=== PATIENT | female | born 1940 | race Caucasian/White ===

== ENCOUNTER → 2021-07-08 08:36 | Outpatient (CLI) | payer MEDICARE, OTHER, SELFPAY ==
[2021-07-08 11:33] LABS: COVID19 -Nasal RAPID Negative (Negative)
== END ==
PROVIDERS: PCP Family Medicine; Visit Provider Physician Assistant
DX: Z20.822 Contact with and (suspected) exposure to COVID-19 (principal)
CPT/HCPCS: 87635; C9803

== ENCOUNTER 2021-07-10 09:15 | Observation (INO) | payer MEDICARE, OTHER, SELFPAY ==
[2021-07-03 12:37] VITALS: BMI 37.9
[2021-07-09] VITALS (18 sets, daily range): BP systolic 115–187; BP diastolic 43–84; PULSE 61–95; RESP 12–22; TEMP 36.3–36.8; O2SAT 92–100; BMI 37.9
--- NOTE | 2021-07-09 06:15 | DI.RAD.S_ITS ---
PROCEDURE: XR KNEE LT 1TO2V INDICATIONS: postop prosthesis placement TECHNIQUE: 2 view(s) of the knee acquired. COMPARISON: [facility] [place], CR, XR KNEE ARTHRITIC SERIES BI, 03/13/2021, 13:59. FINDINGS: Bones: Patient is status post knee joint arthroplasty. Hardware components are in expected positions. Visualized bony structures are intact. Soft tissues: Overlying postoperative changes are noted. IMPRESSION: Expected immediate postoperative appearance of left TKA. Dictated by: Ander Chao [facility] Interpreted: Robert Almanza MD on 07/09/2021 at 11:42 Transcribed by: ROYAL on 07/09/2021 at 11:42 Approved by: Robert Almanza M.D. on 07/09/2021 at 12:09
[2021-07-09] MEDS: ACETAMINOPHEN 325 MG TABLET 975 MG PO (07:00)
[2021-07-09] MEDS: LACTATED RINGERS 1,000 ML 42 ML IV ×2 (07:00→09:46)
[2021-07-09] MEDS: PREGABALIN 75 MG CAPSULE PO (07:00)
[2021-07-09] MEDS: CELECOXIB 200 MG CAPSULE PO (07:01)
[2021-07-09] MEDS: VANCOMYCIN 1,000 MG/200 ML PIGGYBACK 200 MG IV (07:01)
--- NOTE | 2021-07-09 07:53 | PM.PREOP ---
Pre-operative Note COVID-19 COVID-19 status: Negative Interval Note History & Physical reviewed/Exam performed by Physician: Yes Changes to H&P: No
--- NOTE | 2021-07-09 08:07 | PM.OP.1 ---
Operative Date/Time/Diagnoses Date of procedure: 07/09/21 Time of procedure: 08:10 Pre-op diagnosis: left knee OA Post-op diagnosis: same Procedure & Clinicians Procedure: left knee OA Same procedure as scheduled: Yes Indications: The patient has had progressively worsening left knee pain with radiographic changes consistent with arthritis. Non-operative management has failed and the patient has requested total knee replacement. The risks, benefits and alternatives to surgery were discussed with the patient prior to proceeding. Risks discussed included, but were not limited to, failure to relieve pain, stiffness, infection, nerve damage, deep venous thrombosis, pulmonary embolism, stroke, coma, heart attack, permanent paralysis and , as well as the potential need for eventual revision of the prosthetic. Surgeon: Gwen Burns Quality Assurance Inspector: Brandie Canales Anesthesia Type: General and Spinal Operative Notes Findings: Severe left knee osteoarthritis Closure Type: primary Specimen(s): none sent Prosthetic devices, grafts, tissues, transplants, or devices: Size 5 left femur, size 3 tibia, +10 poly, 7.5 by 35 mm patella round Applied: drain(s) Estimated Blood Loss (mL): 250 Blood products transfused: none Tourniquet time (min): 92 Procedure in detail: The patient was seen in the pre-operative area, where the patient identified the left knee as the operative site and this was marked with my initials. The patient received pre-operative antibiotics, and was taken to the operating room and placed on the operative table in the supine position. After satisfactory anesthesia, a materials assistant out was performed. The left leg was encircled with a tourniquet about the proximal thigh, and the leg was prepared from the toes to the tourniquet with ChloroPrep in the usual fashion and draped through sterile drapes. The leg was elevated and exsanguinated with Eschmark bandage and the tourniquet inflated to [250] mmHg pressure. The knee was approached through an approximately 18 cm incision centered over the patella and carried into the knee through a medial parapatellar arthrotomy. A portion of the medial and lateral meniscus was resected. Soft tissue was carefully mobilized around the patella the patella was measured with a caliper. Bone was resected from the patella and the patellar height was reconstituted with up an appropriate sized patellar component. A cover was then placed on the patella. A small amount of additional medial and lateral meniscus was resected. The distal femur was cut at 5?. A [+2] cut was used. It looked like an appropriate distal femoral cut and the cut was made without difficulty. An extramedullary guide was used for the tibial cut. 10 mm was resected off the least affected side. She had a very tight varus knee and throughout the procedure meticulous attention was directed at getting adequate gap balancing. I resected all of the bony osteophytes from the medial aspect of the tibia and the femur stripped portion of the MCL at joint line and specifically checked and released the posterior medial capsule and then used a spinal needle with the multiple puncture technique to loosen the medial collateral ligament. The tibia was prepared. The rotation was assessed. The patient was placed in extension residual medial and lateral meniscus as well as any residual bone was carefully resected. [No] additional tibia was resected. Hemostasis was achieved especially posteriorly. Additional local was injected into the posterior capsule. The extension gap was assessed and additional releases for gap balancing were performed as necessary. It was checked with the gap marketing and promotions manager. The femoral component was trial was placed and the notch was finished The rotation was assessed and the appropriate size femoral guide was placed on the distal femur and finishing cuts were made. There was no evidence of notching. The anterior, posterior and chamfer cuts were then made. The posterior osteophytes and soft tissues were then removed. The posterior capsule was injected with part of a mixture of 60 ml 0.25% Marcaine mixed with 20 ml Exparel for post operative pain control. The remainder of this mixture was injected into the capsule and subcutaneous tissues during cement curing.l tibial and femoral components were then placed and the knee placed through a range of motion. Range of motion was [0-120], with good stability throughout the range. The trials were then removed, and the tibia was finished. The bone was prepared with pulsatile lavage, and dried with a sponge. Cement was applied and the final prosthetics placed. Excess cement was removed during and after cement curing. A brief Betadine soak was performed. After confirming there was no extruded cement posteriorly, the final tibial insert was placed. The knee was copiously irrigated and the tourniquet deflated. Hemostasis was obtained with the Bovie cautery. A drain was placed and brought out superolaterally. The capsule was closed with interrupted nonabsorbable suture. The subcutaneous layer was closed with barbed sutures, and the skin with a running 3-0 V-Lock suture and Surgical glue. An Aquacel Ag dressing was applied and the patient was taken to recovery having tolerated the procedure well. Complications: none Post-operative Condition: stable Disposition: Acute Care Plan for aftercare: The patient will be maintained on a standard total knee replacement protocol with weight bearing as tolerated. The patient will receive aspirin and sequential compression devices for DVT prophylaxis. The patient will be discharged home when safe for the home environment.
[2021-07-09] MEDS: CEFAZOLIN 2 GM/20 ML SYRINGE IV ×2 (08:14→16:21)
[2021-07-09] MEDS: TRANEXAMIC ACID 1,000 MG VIAL 1000 MG INJ (08:25)
--- NOTE | 2021-07-09 08:48 | SUR.OPER ---
Supine on padded OR bed. Pillow under head, arms secured on padded armboards <90 degree abduction. Safety belt across torso. Non-operative leg secured with tape over blanket over lower leg. Operative leg secured in DeMayo/August/Nathe positioner. Foam padded brace at thigh of operative leg.
[2021-07-09] MEDS: BUPIVACAINE 0.25% (PF) 60 ML, EPINEPHrine 0.3 MG INJ (08:52)
[2021-07-09] MEDS: BUPIVACAINE LIPOSOME 266 MG/20 ML VIAL INJ (08:52)
--- NOTE | 2021-07-09 11:47 | SUR.PHASEI ---
Patient transferred to room 218 in bed by this RN. SBAR report update at bedside. Pt awake, alert, denies pain. Starting to wiggle toes. Tolerating ice chips. Call light in reach. Dressing remains C/D/I and hemovac clamped.
[2021-07-09] MEDS: LACTATED RINGERS 1,000 ML 100 ML IV ×2 (12:30→22:29)
[2021-07-09] MEDS: IBUPROFEN 400 MG TABLET PO ×3 (13:20→21:16)
--- NOTE | 2021-07-09 13:40 | DIET.PN1 ---
Dietary Progress Note Assessment: 80y F admitted for total knee referred to nutrition for low MNA. Pt reports depression because of of spouse this year. Pt diabetic c POC BG 199 after surgery, will change diet to Consistent Carb to support good BG control for wound healing (wound vac) BG goal <180. Pt not at risk for malnutrition, consumed 100% lunch today with BMI 37.4. Ht: 167.64 cm Wt: 105 kg BMI: 37.9 UBW: Last BM: 07/08/21 (07/09/21 12:05) MNA: 10 Flavio Score: 16 Diet: 07/09/21 Lunch General (Regular) Diet Diet Modifications: Nutrition Percent Meal Consumed 100% 07/09/21 13:22 Electronically Signed by: Becca Downing 07/09/21 13:40 Clinical Dietitian [address] [address]
[2021-07-09] MEDS: ACETAMINOPHEN 325 MG TABLET 650 MG PO ×2 (14:43→21:15)
--- NOTE | 2021-07-09 14:43 | PT.IIE ---
Current Diagnoses Unilateral primary osteoarthritis, left knee (07/09/21) Surgery Performed Operation Date: 07/09/21 07:45 Actual Procedures p Total Knee Arthroplasty(Left) - Gwen Burns MD Medical History (Last Updated 07/03/21 @ 13:12 by Soraya Ferreira RN) Anxiety Aortic stenosis Asthma Breast cancer, left Chronic sinusitis Diabetes (2002) Diabetic neuropathy GERD (gastroesophageal reflux disease) Gout HLD (hyperlipidemia) HTN (hypertension) Osteoarthritis Retrosternal goiter Physical Therapy Inpatient Evaluation/Re-Eval M1 PT/OT-IP Prior Functional Status Start: 07/09/21 14:02 Freq: NEEDED Status: Active Protocol: Document 07/09/21 14:43 AW (Rec: 07/09/21 15:15 AW [id number]) Medical Review Prior Functional Status Medical History Reviewed Yes Communication No known deficits. Pt is able to make her needs known. Mobility and Gait Pt is modified independent with use of SBQC around her house and to the car. Her knee pain has been so debilitating that she has not been to the store in three years. She has been attending outpatient PT for her knee pain. Activities of Daily Living and IADL's Pt reports independence with ADL's. She does not drive but rather depends on her friend to drive to appointments. Her daughter and [id number] run errands and shopping trips for her. Prior Functional Level (Other details) PMH includes DM2, BRCA s/p L mastectomy, neuropathy affecting bilateral legs and right hand. Social History Household Members none Living Arrangements House Number of Floors (Floors) One Floor Number of Stairs To Enter/Railing? 4 steps up to deck with wide bilateral rails Home Environment High Toilet,Tub/Shower Home Equipment Front Wheel Walker,Quad Cane Employment Status Retired Additional Social History Comment Pt lives alone in [facility]. Her [id number], Kaykay, will stay with the patient at least one week at discharge. M2 PT-IP Current Condition Start: 07/09/21 14:02 Freq: NEEDED Status: Active Protocol: Document 07/09/21 14:43 AW (Rec: 07/09/21 15:15 AW [id number]) Physical Therapy Current Condition Current Condition Evaluation Date 07/09/21 Treatment Diagnosis L TKA; BLE neuropathy; difficulty in walking Onset Date 07/09/21 M3 PT-IP Subjective Start: 07/09/21 14:02 Freq: NEEDED Status: Active Protocol: Document 07/09/21 14:43 AW (Rec: 07/09/21 15:15 AW [id number]) Subjective Physical Therapy Visit Type Type Initial Evaluation Visit Start Time 14:05 Visit Stop Time 14:43 Total Visit Minutes 38 Number of TIRE MECHANIC Visits 0 Physical Therapy Visit Comments Patient Comments Pt would like to use the commode Patient Goals Pt plans to return home with family support. Therapy Pain Assessment Pain When Pain Assessed During Mobility Pain Present Pain Present Pain Reported Location left knee Intensity 3 Scale Used Numeric (0 - 10) Pain Management Techniques Apply Cold,Elevation,Timing of Activity with Medications M4 PT-IP Mobility and Gait Start: 07/09/21 14:02 Freq: NEEDED Status: Active Protocol: Document 07/09/21 14:43 AW (Rec: 07/09/21 15:15 AW [id number]) PT-Bed Mobility Assessment Supine to Sit Supine to Sit Minimal Assistance,1 Person Assistance,Head of Bed Elevated,Bedrails Sit to Supine Sit to Supine Minimal Assistance,1 Person Assistance Scooting Scooting to Edge of Bed Standby Assistance PT-Transfer Assessment Sit to and From Stand Sit to and from Stand Moderate Assistance,1 Person Assistance,Use of Upper Extremities Equipment Transfer Assistive Device Gait Belt,Front Wheeled Walker Orthotic/Prosthetic Devices or Brace: No Transfers Transfer Destination Bed,Bedside Commode Transfer Technique Stand Step Pivot Transfer Ability Level of Assist Minimal Assistance,Moderate Assistance,1 Person Assistance Comments Mobility Comments Pt was lying in bed as PT arrived. BP was 148/56 HR 94 SpO2 99% RA. Bed was locked in 30 degrees elevation and pt felt she needed to get to the commode urgently. She needed min assist to guard and guide her operative leg to dangling position on the right side of the bed. She then stood mod A x 1 and used FWW to turn 90 degrees to her left, transferring to [facility] mod A x 1. She voided and completed pericare without assist. She stood from the [facility] with heavy use of UE on commode arms mod A x 1 and transferred back to bed with min assist using FWW. With min assist to lift her operative leg, she returned to supine. BP after activity was 149/49 HR 96 SpO2 99% RA. Pt was left with call light and tray table in reach, SCD's reapplied, and ice pack on left knee. Gait Assessment Comments Gait Comments Steps taken during transfers only. See mobility comments for details. PT-Balance Assessment Sitting Balance and Reactions Static Sitting Balance Ability Good Dynamic Sitting Balance Ability Good Standing Balance and Reactions Static Standing Balance Ability Fair Dynamic Standing Balance Ability Fair Device Used FWW M5 PT-IP Objective Assessments Start: 07/09/21 14:02 Freq: NEEDED Status: Active Protocol: Document 07/09/21 14:43 AW (Rec: 07/09/21 15:15 AW [id number]) Orientation Orientation/Cognition Level of Alertness Alert Orientation Name,Day of Week,Place, Situation Language Function Ability No Deficits Noted Safety Awareness Understands Safety Issues Memory Description No Deficits Noted Gross Range of Motion Lower Extremity ROM Assessment Left Impaired Strength Lower Extremity Strength Assessment Bilaterally Impaired Hip R 4/5; L 4-/5 Knee R 4+/5 Ankle B 4/5 Sensation Assessment Sensation Gross Sensation Right UE Impaired,Right LE Impaired,Left LE Impaired Light Touch Impaired Proprioception (Position) Impaired Comments Sensation Comments 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 She reports her PT will take her shoes off and she has no idea if she is not looking. Similarly, pt does not feel pressure of SCD's on her legs at this encounter. Sensation slightly more intact proximally. M6 PT-IP Treatment Start: 07/09/21 14:02 Freq: NEEDED Status: Active Protocol: Document 07/09/21 14:43 AW (Rec: 07/09/21 15:15 AW [id number]) Physical Therapy Treatment Exercises Exercises Ankle Pumps,Quad Sets,Heel Slides Education Education Provided Weight Bearing Status,Post-Op Packet,Safety Other Treatments Other Treatment Performed Educated pt on PT plan of care , weightbearing status, safe use of FWW. M7 PT-IP Assessment and Plan Start: 07/09/21 14:02 Freq: NEEDED Status: Active Protocol: Document 07/09/21 14:43 AW (Rec: 07/09/21 15:15 AW [id number]) PT Summary Assessment and Plan Potential Rehabilitation Potential Good Status of Condition at Evaluation Evolving Summary Impairments Pain,ROM,Strength,Balance,Bed Mobility,Transfers,Gait Assessment Summary Jessica is an 80 yo woman with diabetes and severe neuropathy who was seen for PT evaluation on POD0 following L TKA. She is modified independent at baseline for household mobility with a quad cane. Community mobility is severely limited and pt leaves her house for appointments only. She lives alone but will have her [id number] to stay with her when she discharges. Pt required min to mod assist for bed mobility and transfers on initial assessment. She did not progress to gait due to fatigue. PT will continue to assess for safe discharge plan but currently recommending home with 24/7 assist available. Pt will likely require home health PT to progress her ROM, strength, and gait. Will need to set up caregiver training at next session. Goals Bed Mobility Goal Independent Transfer Goal Standby Assistance,Front Wheeled Walker Gait Goal Contact Guard Assistance,Front Wheel Walker Gait Distance 75 Other Goals - up/down 4 steps with unilateral rail CGA Days to Meet Goals 5 Frequency of Treatment Frequency Of Treatment Twice a Day Treatment Plan Physical Therapy Treatment Plan Bed Mobility Training,Transfer Training,Gait Training, Therapeutic Exercise,Balance Retraining,Post Op Education, Discharge Planning,Hot or Cold Pack Other Recommendations and Next Treatment transfers, gait training with Focus FWW, ther ex, coordinate CGT for PM session Weight Bearing Status Weight Bearing Status Weight Bear as Tolerated Recommendations To Nursing Amount of Assist Needed 1 Person Assist Discharge Recommendations PT Discharge Recommendations Home with 24/7 Assist Available,Home Health Transportation Needs at Discharge Private Vehicle
[2021-07-09] MEDS: glyBURIDE 2.5 MG TABLET PO (16:38)
[2021-07-09] MEDS: allopurinoL 100 MG TABLET PO (21:16)
[2021-07-09] MEDS: DOCUSATE 100 MG CAPSULE PO (21:16)
[2021-07-09] MEDS: ASPIRIN EC 81 MG TABLET PO (21:16)
[2021-07-09] MEDS: SODIUM CHLORIDE 0.9% FLUSH 10 ML IV (21:21)
[2021-07-10] VITALS: BP 137/41; PULSE 73; RESP 20; TEMP 36.7; O2SAT 95
[2021-07-10] MEDS: IBUPROFEN 400 MG TABLET PO ×6 (01:35→19:55)
[2021-07-10] MEDS: CEFAZOLIN 2 GM/20 ML SYRINGE IV (01:36)
[2021-07-10 03:53] VITALS: BP 104/49; PULSE 66; RESP 18; TEMP 36.7; O2SAT 97
[2021-07-10] MEDS: LEVOTHYROXINE 50 MCG TABLET PO (05:38)
[2021-07-10 05:48] LABS: Hematocrit 32.9 % (36-46); Hemoglobin 10.9 g/dL (12.0-16.0)
--- NOTE | 2021-07-10 06:22 | PM.PNPO.1 ---
Subjective Subjective Date Patient Seen: 07/10/21 Time Patient Seen: 06:22 Interval history: Patient is complaining of mild left knee pain this morning. She has a history of peripheral neuropathy due to diabetes and does not have typical pain. She is using Tylenol and ibuprofen, she refuses narcotic pain medications. She is planning on discharging home but is concerned because she has 4 steps it was rather deconditioned prior to surgery. Exam Vital Signs (past 8 hours): - 07/10/21 00:00 07/10/21 03:53 Temperature 98.0 F 98.0 F Pulse Rate 73 66 Respiratory Rate 20 18 Blood Pressure 137/41 L 104/49 L Pulse Oximetry 95 97 Oxygen Delivery Method Room Air Oxygen Flow Rate 0 Narrative Exam Narrative: Left pleasant he year old female, resting comfortably in bed, no acute distress. Dressing is clean, dry, intact. Bilateral lower extremity: Normal motor function is grossly intact, sensation is decreased bilaterally. Calves are soft and nontender to palpation. The Hemovac drain was removed today. Objective Labs Result Diagrams: 07/10/21 05:23 Labs: Laboratory Results - last 24 hr 07/10/21 05:23 Hgb 10.9 L Hct 32.9 L PFSH Medical History Anxiety Aortic stenosis Asthma Breast cancer, left Chronic sinusitis Diabetes (2002) Diabetic neuropathy GERD (gastroesophageal reflux disease) Gout HLD (hyperlipidemia) HTN (hypertension) Osteoarthritis Retrosternal goiter Surgical History Hx of bilateral cataract extraction Hx of left mastectomy (01/28/19) Hx of thyroidectomy (2004) Hx of tonsillectomy Hx of vaginal hysterectomy Social History household members: none Smoking Status: Never smoker alcohol intake: never Assessment & Plan Post-op Postoperative Procedures: Procedures Operation Date: 07/09/21 07:45 Actual Procedure Side Surgeon p Total Knee Arthroplasty Left Gwen Burns MD Postoperative day: 1 Postoperative status narrative: Stable status post left total knee arthroplasty Postoperative plan narrative: -mobilize with PT. Weightbearing as tolerated front wheel walker -continue with current pain regimen and DVT prophylaxis -disposition likely home tomorrow due to her diabetes and peripheral neuropathy as well as having stairs in her home.
[2021-07-10 08:00] VITALS: BP 144/47; PULSE 67; RESP 16; TEMP 36.5; O2SAT 95
[2021-07-10] MEDS: ACETAMINOPHEN 325 MG TABLET 650 MG PO ×3 (09:52→19:54)
[2021-07-10] MEDS: allopurinoL 100 MG TABLET PO ×2 (09:52→19:56)
[2021-07-10] MEDS: DOCUSATE 100 MG CAPSULE PO ×2 (09:52→20:30)
[2021-07-10] MEDS: ASPIRIN EC 81 MG TABLET PO ×2 (09:52→19:55)
[2021-07-10] MEDS: SODIUM CHLORIDE 0.9% FLUSH 10 ML IV ×2 (09:53→20:30)
[2021-07-10] MEDS: glyBURIDE 2.5 MG TABLET PO ×2 (09:53→18:13)
--- NOTE | 2021-07-10 10:02 | PT.IPTN ---
Current Diagnoses Unilateral primary osteoarthritis, left knee (07/10/21) Surgery Performed Operation Date: 07/09/21 07:45 Actual Procedures p Total Knee Arthroplasty(Left) - Gwen Burns MD Physical Therapy Treatment Note M2 PT-IP Current Condition Start: 07/09/21 14:02 Freq: NEEDED Status: Active Protocol: Document 07/10/21 09:22 SP (Rec: 07/10/21 13:47 SP [id number]) Physical Therapy Current Condition Current Condition Evaluation Date 07/09/21 Treatment Diagnosis L TKA; BLE neuropathy; difficulty in walking Onset Date 07/09/21 M3 PT-IP Subjective Start: 07/09/21 14:02 Freq: NEEDED Status: Active Protocol: Document 07/10/21 09:22 SP (Rec: 07/10/21 13:47 SP [id number]) Subjective Physical Therapy Visit Type Type Treatment Note Visit Start Time 09: Visit Stop Time 10:02 Total Visit Minutes 40 Notes Vitals taken during tx: supine: BP 152/48, HR 69bpm post mobility seated: 165/52 HR 69 KADY stated wanted to see how pt was mobilizing before provided assist, requested CGT with her providing assist this afternoon instead. KADY observed this am. Number of SALESPERSON RECREATIONAL VEHICLES Visits 1 Physical Therapy Visit Comments Patient Comments Pt would like to use the commode. Patient Goals Pt plans to return home with family support. Therapy Pain Assessment Pain When Pain Assessed During Mobility Pain Present Pain Present Pain Reported Location left knee Intensity 3 Scale Used Numeric (0 - 10) Description Aching Pain Management Techniques Apply Cold,Elevation,Timing of Activity with Medications M4 PT-IP Mobility and Gait Start: 07/09/21 14:02 Freq: NEEDED Status: Active Protocol: Document 07/10/21 09:22 SP (Rec: 07/10/21 13:47 SP [id number]) PT-Bed Mobility Assessment Supine to Sit Supine to Sit Minimal Assistance,1 Person Assistance,Head of Bed Elevated,Bedrails Sit to Supine Sit to Supine Minimal Assistance,1 Person Assistance Scooting Scooting to Edge of Bed Standby Assistance PT-Transfer Assessment Sit to and From Stand Sit to and from Stand Moderate Assistance,1 Person Assistance,Use of Upper Extremities Equipment Transfer Assistive Device Gait Belt,Front Wheeled Walker Orthotic/Prosthetic Devices or Brace: No Transfers Transfer Destination Chair,Bedside Commode Transfer Technique Stand Step Pivot Transfer Ability Level of Assist Minimal Assistance,Moderate Assistance,1 Person Assistance Comments Mobility Comments Pt in bed when arrived. Instructed post op supine ex: AP, quad set, HS with use strap and assist approx 70 deg L knee flexion, L knee extension hang ankle over towel roll; seated knee flexion 90 deg AROM. Supine > sit Min A for trunk righting to sit, scoot to EOchair SBA. DIL donned gait belt, sit> stand Mod A x1 using fWW. SPT bed>chair Mod A x1 with support to steady trunk and cues for quad factilitation to maintain knee extension, heavy BUE WB on FWW. Mod A for stand>sit in chair. Min A sit > stand from chair, forward gait approx 6 ft using FWW Mod A for steading on feet and trunk balance support with cues for quad facilitation, required seated rest at end of bed and requested use of commode, Min A for steading stand balance while providing assist for brief mgt then Min A for descent sit on commode. Was able to void, Min A sit> stand, CG- Min A for maintain balance using FWW, required assist for pericare and brief mgt. Pt reported tired in standind unable to walk 6 ft back to chair, SALESPERSON RECREATIONAL VEHICLES repositioned chair closer complete SPT BSC to chair Min A with good self repositioning FWW self, Min A slow descent sit in to chair. Pt had call light and all needs in reach before left, encouraged LE seated ex: AP, knee flexion for mobilty while up in chair. DIL was in room. Pt had good understanding of use of call light for assist. Gait Assessment Gait Gait Assistance Required: Moderate Assistance,1 Person Assist Distance (Feet) 6 Able to Maintain Weight Bearing Status Yes During Gait Assistive Devices Assistive Device Gait Belt,Front Wheeled Walker Orthotic/Prosthetic Devices or Brace: No Gait Deviations General Gait Pattern Antalgic,Decreased Stride Length,Decreased Feet Clearance,Flexed Trunk,Step-to Gait Factors Limiting Gait Function Factors Limiting Gait Function Decreased Activity Tolerance, Decreased Sensation,Decreased Strength,Difficulty Following Directions,Limited Range of Motion,Pain,Poor Balance,Poor Safety Awareness Comments Gait Comments Pt tires quickly during forward gait step to patterning, cues for tall posture, quad facilitation, foot clearance Mod A x1 w/ FWW for trunk support, she requiring another surface to sit for rest recovery. Stair Climbing Assessment Comments Stair Climbing Comments unable to assess due to decreased strength. PT-Balance Assessment Sitting Balance and Reactions Static Sitting Balance Ability Good Dynamic Sitting Balance Ability Good Standing Balance and Reactions Static Standing Balance Ability Fair Dynamic Standing Balance Ability Poor Device Used FWW M5 PT-IP Objective Assessments Start: 07/09/21 14:02 Freq: NEEDED Status: Active Protocol: Document 07/09/21 14:43 AW (Rec: 07/09/21 15:15 AW [id number]) Orientation Orientation/Cognition Level of Alertness Alert Orientation Name,Day of Week,Place, Situation Language Function Ability No Deficits Noted Safety Awareness Understands Safety Issues Memory Description No Deficits Noted Gross Range of Motion Lower Extremity ROM Assessment Left Impaired Strength Lower Extremity Strength Assessment Bilaterally Impaired Hip R 4/5; L 4-/5 Knee R 4+/5 Ankle B 4/5 Sensation Assessment Sensation Gross Sensation Right UE Impaired,Right LE Impaired,Left LE Impaired Light Touch Impaired Proprioception (Position) Impaired Comments Sensation Comments 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 She reports her PT will take her shoes off and she has no idea if she is not looking. Similarly, pt does not feel pressure of SCD's on her legs at this encounter. Sensation slightly more intact proximally. M6 PT-IP Treatment Start: 07/09/21 14:02 Freq: NEEDED Status: Active Protocol: Document 07/10/21 09:22 SP (Rec: 07/10/21 13:47 SP [id number]) Physical Therapy Treatment Exercises Exercises Ankle Pumps,Quad Sets,Heel Slides,Short Arc Quads,Passive Knee Extension Hang,Seated Knee Flexion/Extension Knee ROM Measurement approx 70 deg with strap during HS and Min assist Education Education Provided Weight Bearing Status,Post-Op Packet,Safety M7 PT-IP Assessment and Plan Start: 07/09/21 14:02 Freq: NEEDED Status: Active Protocol: Document 07/10/21 09:22 SP (Rec: 07/10/21 13:47 SP [id number]) PT Summary Assessment and Plan Potential Rehabilitation Potential Good Status of Condition at Evaluation Evolving Summary Impairments Pain,ROM,Strength,Balance,Bed Mobility,Transfers,Gait Progress Towards Goals Progressing Toward Goals,Slow Progress due to Pain,Slow Progress due to Activity Tolerance Assessment Summary Pt required Min- Mod assist for all mobiltiy using FWW. Pt had decreased strength and endurance to forward gait 6 ft using FWW. Pt is not able to complete stair training at this time. SALESPERSON RECREATIONAL VEHICLES recommending SNF vs 24/7 assist available HHPT if able to complete 4 step stair mgt 1HR to allow safely enter home at this time . Will continue to assess progress. Goals Bed Mobility Goal Independent Transfer Goal Standby Assistance,Front Wheeled Walker Gait Goal Contact Guard Assistance,Front Wheel Walker Gait Distance 75 Other Goals - up/down 4 steps with unilateral rail CGA Days to Meet Goals 5 Frequency of Treatment Frequency Of Treatment Twice a Day Treatment Plan Physical Therapy Treatment Plan Bed Mobility Training,Transfer Training,Gait Training, Therapeutic Exercise,Balance Retraining,Post Op Education, Discharge Planning,Hot or Cold Pack Other Recommendations and Next Treatment transfers, gait w/ FWW, ther Focus ex, CGT with DIL at 2 pm. Weight Bearing Status Weight Bearing Status Weight Bear as Tolerated Recommendations To Nursing Amount of Assist Needed 1 Person Assist Discharge Recommendations PT Discharge Recommendations Home with 24/7 Assist Available,Home Health,SNF Rehab,Home vs SNF Transportation Needs at Discharge Private Vehicle
--- NOTE | 2021-07-10 10:59 | PC.NURSE ---
Addendum entered by Kyleigh Engel R.N. 07/10/21 17:52: Patient up to the commode and voided, she is now sitting up eating her dinner. Addendum entered by Kyleigh Engel R.N. 07/10/21 15:33: Patients blood pressure medication held this morning as her dyastolic pressure was 44. Patients daughter moved patient in her chair all the way around the room so that she could get her to the commode. This RN put patient on the commode, she voided and then was cleaned up. She took 4 steps from the commode to her bed and tolerated well. Patient gets tired easily and per PT she can only walk about 50% with the walker and also needs to gaitbelt and chair for support. Original Note: Assess- Patient is alert and oriented x3, she is working with physical therapy well. L.knee dressing is cdi with aquacel and missael wrap. Patients daughter is in room and doing some healthcare manager training with her. Given tylenol and ibuprofen for pain and discomfort. Patient is sitting up in her chair comfortably and denies discomfort at this time.
--- NOTE | 2021-07-10 11:39 | CM.DANOTE ---
Addendum entered by SUKHDEV Ahumada 07/10/21 14:09: ADD: Per FILM DEVELOPING MACHINE OPERATOR, pt was only able to ambulate very minimally and fatigued quickly and currently recommending SNF rehab pending progress for safety due to 4 stairs to enter and FILM DEVELOPING MACHINE OPERATOR discussed with pt and DIL and they are discussing having friends come to help get pt into the house. FILM DEVELOPING MACHINE OPERATOR to attempt CG training with pt and DIL this afternoon to determine progress and needs. SW met bedside with pt and DIL again and provided the SNF Choice list and pt states her spouse had been to [facility] when alive and pt really does not want to go to SNF at d/c. SW provided the list in case pt does not progress as well as anticipated and also provided [facility] contact info in anticipation of d/c to home with HH. BF Original Note: Patient is an 80 yo female who was admitted on 07/09/21 for LTKA. Pt has [facility] for insurance and her PCP is Shalonda Driver. EMR was reviewed. Per Ortho PA, pt tolerated procedure well and to work with PT more today towards likely d/c home tomorrow if stable. Per UR, pt converted to OBS Status today 07/10/21. Per PT, recommending likely home with Dtr to stay and HH pending further PT and CG training set for 1100 today. SW met bedside with pt and Dtr and explained role and they confirm that pt resides at home alone in [place] (pt now ) and does not drive and has become very deconditioned over the past couple years and now has PAULO and Dtr and DIL that help to do her shopping and run errands and provide transport for appointments or pt pays for a taxi. Pt denies any HH or SNF for herself but her spouse used HH before and pt strongly confirms that she feels HH needed at d/c and that Dtr will stay at least a week for assist. SW provided the HH Choice list and no preference and therefore SW made referral to [facility] based on Vendor Calendar and confirmed they received fax and can accept and SW also faxed F2F and MD orders and just need to fax d/c summary at discharge. Plan: SW to follow for plan of d/c to home via Dtr POV and to stay for a week and new [facility] and to fax d/c summary when available. SUKHDEV Ahumada Discharge Planning/Care Management CM Discharge Assessment Start: 07/10/21 11:30 Freq: Status: Active Protocol: Document 07/10/21 11:32 BF (Rec: 07/10/21 11:38 BF [id number]) Discharge Planning Assessment Assigned Armhole Raiser Lockstitch SUKHDEV Luu Advance Directives? Yes Advance Directives on File No History Provided By Patient,Family Member,Medical Record Has Patient been admitted in last 30 No days? Prior Living Arrangements House Household Members none Type of transporation used prior to Relies on Others admit Comment Typically she gets taxi or Dtr or PAULO help transport for appointments Independent with ADL's Yes Is patient alert and oriented? Yes Needs Assistance With Meal Prep,Home Chores / Shopping Caregiver for Another No Community Services used prior to Physical Therapy admission: DME Already Rented / Owned Bath Bench,FWW / Walker Patient/Family Preference Home with Home Health Barriers to Discharge No Discharge Plan Home with Home Health Community Services Physical Therapy,Occupational Therapy,Home Health Aid,Home Health Nurse Transportation Arrangement Dtr bedside and plans to transport home and stay with pt for a week for assist Referrals Initiated Home Health If patient plan is home with home health Yes : Has signed face to face form been completed? Medicare Choice List Provided Yes SNF/HH Preference [facility] based on Vendor Calendar Whiteboard Updated in Patient Room with Yes name and ext. # of Armhole Raiser Lockstitch Review Status In Process Please Provide Date Initial DC 07/10/21 Assessment Was Performed Next Review Type Continued Stay Review Pre-Anesthesia Assessment Start: 07/03/21 12:37 Freq: Status: Active Protocol: Document 07/03/21 12:37 CAB (Rec: 07/03/21 13:27 CAB [id number]) Pre-Anesthesia Assessment Preferred Name Sis Patient Information Reviewed Via Phone Assessment Assessment Completed With Patient H&P Completed Within 30 Days No Diagnostic Results EKG Comment Outside EKG scanned labs done per pt, not avail, COVID screen @ [facility] 07/10/21 Primary Care Provider Edna Hampton Medical Clearance Received Yes Seen Specialist in Last 12 Months Yes Specialist Seen Return Checker,Orthopedist Comment PCP clearance form scanned Primary Language Tongan Travel Money Advisor Required No Height 167.64 cm Weight 106.594 kg Body Mass Index (BMI) 37.9 Hearing Ability Normal Visual Assist Glasses Dentition Type Full- Upper & Lower Barriers to Learning None Hx Anesthesia Reactions No Hx Family Anesthesia Reaction No Hx Malignant Hyperthermia No Hx Blood Transfusions No Anesthesia Review Requested No Tenant Coordinator No alcohol intake never Smoking Status Never smoker Substance Use Type does not use Pain Present Pain Reported Musculoskeletal Symptoms Abnormal Gait,Difficulty Walking,Joint Pain,Neck Pain History of Falling (Recent or History of No ) Patient is completely paralyzed or No completely immobile Prosthesis or Orthotic Device Cane Mental Status Oriented to own ability Is patient on oxygen? No Does patient have SUTTON/SOB Yes Hx Sleep Apnea No Currently Taking a Beta Vadim No Can You Climb a Flight of Stairs Without No SOB Hx Chest Pain No Hx SOB Yes Hx Syncope or Dizziness No Anti-Coagulant Therapy No Has a Return Checker Yes: Dr. Vivas - visit Cardiac Testing Yes: Echo @ [facility] 04/08/21 Hx Pacemaker/ICD No Pacemaker Rep Required? No Comment Cardiac records scanned Diet Type At Home Regular dysphagia No Gastrointestinal Symptoms Reflux Bladder Pattern Incontinent Urinary Catheter Present No Hx Urinary Self Catheterization No Diabetes Yes Patient No Lactating No Hx Drug Resistant Organism No Presence of External or Internal Medical Yes: Vishal eye IOLs Devices Have you had any close contact with No someone diagnosed with COVID-19? Received a COVID vaccine? Yes Received all doses? Yes Marital Status /- 11/11/20 Lives With none Prior Living Arrangements House Number of Floors (Floors) One Floor Support System Child/Children Does the Patient Have Assistance After Yes: [id number] will stay Surgery w/pt at discharge Patient Discharge Plan Description Return Home Comment Pt advised 1 day length of stay per surgeon Feels Safe in Current Environment Yes Been Physically Hurt or Threatened By a No Person in Current Environment Do you have thoughts of harming yourself None or others? Are you currently considering suicide? No Do you have a plan to hurt yourself or No Plan others? Do You Have Any Spiritual Beliefs That No May Affect Your HC Choices? Do You Have Any Cultural Practices That No May Affect Your HC Choices? Comment Mk Who Can We Speak to About Patient's Care Family, friends Identifying Code for Release of Patient Declines to issue Information Health Care Proxy/Next of Kin Stella (daughter) Health Care Proxy Emergency Contact Name Jonn (Son, daughter- in-law) Emergency Contact Advance Directives? Yes Advance Directives on File No Requested Patient Bring Advanced Yes Directives DOS Power of Die Hardener Yes Power of Die Hardener Name Stella (daughter) Power of Die Hardener PAC Instructions Diabetes instructions,Do not shave/clip surgical site, Durable medical equipment, Medications to take/avoid, Nasal antibiotic,No ETOH/ petroleum product on skin DOS, NPO,Post-op transportation,Pre -surgical wash,Sensory aids, Sturdy shoes/comfortable clothes,Do not bring valuables and remove jewelry
[2021-07-10 13:00] VITALS: BP 154/46; PULSE 64; RESP 16; TEMP 36.1; O2SAT 98
--- NOTE | 2021-07-10 15:30 | PT.IPTN ---
Current Diagnoses Unilateral primary osteoarthritis, left knee (07/10/21) Surgery Performed Operation Date: 07/09/21 07:45 Actual Procedures p Total Knee Arthroplasty(Left) - Gwen Burns MD Physical Therapy Treatment Note M2 PT-IP Current Condition Start: 07/09/21 14:02 Freq: NEEDED Status: Active Protocol: Document 07/10/21 14:50 SP (Rec: 07/10/21 16:52 SP [id number]) Physical Therapy Current Condition Current Condition Evaluation Date 07/09/21 Treatment Diagnosis L TKA; BLE neuropathy; difficulty in walking Onset Date 07/09/21 M3 PT-IP Subjective Start: 07/09/21 14:02 Freq: NEEDED Status: Active Protocol: Document 07/10/21 14:50 SP (Rec: 07/10/21 16:52 SP [id number]) Subjective Physical Therapy Visit Type Type Treatment Note Visit Start Time 14:50 Visit Stop Time 15:30 Total Visit Minutes 40 Notes DIL in room, initiated caregiver training: transfers, gait w/ FWW with physical assist required during tx. Number of WINDSHIELD INSTALLER Visits 2 Physical Therapy Visit Comments Patient Comments Pt would like to use the commode. Patient Goals Pt plans to return home with family support. Therapy Pain Assessment Pain When Pain Assessed During Mobility Pain Present Pain Present Pain Reported Location left knee Intensity 3 Scale Used Numeric (0 - 10) Description Aching Pain Management Techniques Elevation,Re-positioning, Timing of Activity with Medications M4 PT-IP Mobility and Gait Start: 07/09/21 14:02 Freq: NEEDED Status: Active Protocol: Document 07/10/21 14:50 SP (Rec: 07/10/21 16:52 SP [id number]) PT-Bed Mobility Assessment Supine to Sit Supine to Sit Contact Guard Assistance,1 Person Assistance,Bedrails Scooting Scooting to Edge of Bed Standby Assistance PT-Transfer Assessment Sit to and From Stand Sit to and from Stand Moderate Assistance,1 Person Assistance,Use of Upper Extremities Equipment Transfer Assistive Device Gait Belt,Front Wheeled Walker Orthotic/Prosthetic Devices or Brace: No Transfers Transfer Destination Chair Transfer Technique pt ambulated using FWW Transfer Ability Level of Assist Minimal Assistance,1 Person Assistance,Use of Upper Extremities Comments Mobility Comments Pt in bed when arrived. Reviewed post op ex: quad set, HS w/ strap, knee extension hang ankle over towel roll. supine>sit, scoot to EOB CGA. DIL donned gait belt. Sit> stand Mod A x1 to come to standing w/ FWW. Initially pt unsteady, cued wt shift between BLE and small steps mobility awareness. progressed gait around end of bed to chair approx 15 ft Min A via DIL, WINDSHIELD INSTALLER close SBA, cued for upright posture, foot clearance and LLE quad facilitation during midstance due to noted flexed L knee decrease risk of buckling, heavy BUE on FWW. SPT and backed up full front chair, cued for reach back and Min A for slow descent to chair. Pt required 2 min rest in chair for recovery, Sit> stand CGA push from chair arms to FWW. Forward gait w/ FWW Elizabeth for trunk stability, extra time required static stand brief stand rest between each LE advancement approx 8 ft before increased unsteady LE demonstrated and Min- Mod A required, followed with chair due to decrease strength and activitiy tolerance. Min A x1 and cues for slow descent to chair while using BUE on chair arms. WINDSHIELD INSTALLER reposition chair back side of bed. Provided warm blankets, call light and all needs in reach before left . Gait Assessment Gait Gait Assistance Required: Minimum Assistance,Moderate Assistance,1 Person Assist Distance (Feet) 8 Able to Maintain Weight Bearing Status Yes During Gait Assistive Devices Assistive Device Gait Belt,Front Wheeled Walker Orthotic/Prosthetic Devices or Brace: No Gait Deviations General Gait Pattern Antalgic,Decreased Stride Length,Decreased Feet Clearance,Flexed Trunk,Step-to Gait Factors Limiting Gait Function Factors Limiting Gait Function Decreased Activity Tolerance, Decreased Sensation,Decreased Strength,Difficulty Following Directions,Limited Range of Motion,Pain,Poor Balance,Poor Safety Awareness Comments Gait Comments See mobility comments Stair Climbing Assessment Comments Stair Climbing Comments Unable to assess due to unsteady in standing, decreased strength during gait distance. Will assess if able tomorrow. PT-Balance Assessment Sitting Balance and Reactions Static Sitting Balance Ability Normal Dynamic Sitting Balance Ability Good Standing Balance and Reactions Static Standing Balance Ability Fair Dynamic Standing Balance Ability Poor Device Used FWW M5 PT-IP Objective Assessments Start: 07/09/21 14:02 Freq: NEEDED Status: Active Protocol: Document 07/09/21 14:43 AW (Rec: 07/09/21 15:15 AW [id number]) Orientation Orientation/Cognition Level of Alertness Alert Orientation Name,Day of Week,Place, Situation Language Function Ability No Deficits Noted Safety Awareness Understands Safety Issues Memory Description No Deficits Noted Gross Range of Motion Lower Extremity ROM Assessment Left Impaired Strength Lower Extremity Strength Assessment Bilaterally Impaired Hip R 4/5; L 4-/5 Knee R 4+/5 Ankle B 4/5 Sensation Assessment Sensation Gross Sensation Right UE Impaired,Right LE Impaired,Left LE Impaired Light Touch Impaired Proprioception (Position) Impaired Comments Sensation Comments 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 She reports her PT will take her shoes off and she has no idea if she is not looking. Similarly, pt does not feel pressure of SCD's on her legs at this encounter. Sensation slightly more intact proximally. M6 PT-IP Treatment Start: 07/09/21 14:02 Freq: NEEDED Status: Active Protocol: Document 07/10/21 14:50 SP (Rec: 07/10/21 16:52 SP [id number]) Physical Therapy Treatment Exercises Exercises Ankle Pumps,Quad Sets,Heel Slides,Short Arc Quads,Passive Knee Extension Hang Education Education Provided Weight Bearing Status,Post-Op Packet,Safety M7 PT-IP Assessment and Plan Start: 07/09/21 14:02 Freq: NEEDED Status: Active Protocol: Document 07/10/21 14:50 SP (Rec: 07/10/21 16:52 SP [id number]) PT Summary Assessment and Plan Potential Rehabilitation Potential Good Status of Condition at Evaluation Evolving Summary Impairments Pain,ROM,Strength,Balance,Bed Mobility,Transfers,Gait Progress Towards Goals Progressing Toward Goals,Slow Progress due to Pain,Slow Progress due to Activity Tolerance Assessment Summary CGA bed mobility sup>sit HOB flat, sit>stand Mod A initially from bed, Min A from chair, Min> Mod A gait using fWW 15 ft, 8 ft chair follow due to decreased activity tolerance. Pt continues require physical assist for standing activity, unable due to safety assess stair mgt. Will need to assess 4 stairs w /HR and QC for safe DC home. WINDSHIELD INSTALLER recommending 24/7 assist available HHPT vs SNF to improve strength and functional mobility. Goals Bed Mobility Goal Independent Transfer Goal Standby Assistance,Front Wheeled Walker Gait Goal Contact Guard Assistance,Front Wheel Walker Gait Distance 75 Other Goals - up/down 4 steps with unilateral rail CGA Days to Meet Goals 5 Frequency of Treatment Frequency Of Treatment Twice a Day Treatment Plan Physical Therapy Treatment Plan Bed Mobility Training,Transfer Training,Gait Training, Therapeutic Exercise,Balance Retraining,Post Op Education, Discharge Planning,Hot or Cold Pack Other Recommendations and Next Treatment transfers, gait w/ FWW, ROM/ Focus Ther ex, 4 step stair mgt w/ HR& QC, continue to coordinate CGT with pt/DIL 12/30 am. Weight Bearing Status Weight Bearing Status Weight Bear as Tolerated Recommendations To Nursing Amount of Assist Needed 1 Person Assist Discharge Recommendations PT Discharge Recommendations Home with 02/02 Assist Available,Home Health,SNF Rehab,Home vs SNF Transportation Needs at Discharge Private Vehicle
[2021-07-10] MEDS: lisinopriL 10 MG TABLET PO (18:14)
[2021-07-10 18:25] VITALS: BP 158/85; PULSE 69; RESP 18; TEMP 37; O2SAT 95
[2021-07-10 20:00] VITALS: BP 177/61; PULSE 72; RESP 18; TEMP 36.1; O2SAT 95
[2021-07-11 00:56] VITALS: BP 162/75; PULSE 74; RESP 17; TEMP 36.6; O2SAT 94
[2021-07-11] MEDS: IBUPROFEN 400 MG TABLET PO ×6 (01:28→20:41)
[2021-07-11] MEDS: LEVOTHYROXINE 50 MCG TABLET PO (05:40)
[2021-07-11 06:05] VITALS: BP 150/62; PULSE 71; RESP 18; TEMP 36.6; O2SAT 95
[2021-07-11 08:00] VITALS: BP 185/84; PULSE 79; RESP 17; TEMP 36.8; O2SAT 93
[2021-07-11] MEDS: glyBURIDE 2.5 MG TABLET PO ×2 (08:37→16:49)
[2021-07-11] MEDS: ASPIRIN EC 81 MG TABLET PO ×2 (08:37→20:40)
[2021-07-11] MEDS: ACETAMINOPHEN 325 MG TABLET 650 MG PO ×3 (08:37→20:40)
[2021-07-11] MEDS: FUROSEMIDE 40 MG TABLET PO (08:38)
[2021-07-11] MEDS: DOCUSATE 100 MG CAPSULE PO ×2 (08:38→20:40)
[2021-07-11] MEDS: lisinopriL 10 MG TABLET PO (08:38)
[2021-07-11] MEDS: SODIUM CHLORIDE 0.9% FLUSH 10 ML IV ×2 (08:39→20:41)
[2021-07-11] MEDS: allopurinoL 100 MG TABLET PO ×2 (09:14→20:40)
--- NOTE | 2021-07-11 09:56 | PT.IPTN ---
Current Diagnoses Unilateral primary osteoarthritis, left knee (07/10/21) Surgery Performed Operation Date: 07/09/21 07:45 Actual Procedures p Total Knee Arthroplasty(Left) - Gwen Burns MD Physical Therapy Treatment Note M2 PT-IP Current Condition Start: 07/09/21 14:02 Freq: NEEDED Status: Active Protocol: Document 07/10/21 14:50 SP (Rec: 07/10/21 16:52 SP [id number]) Physical Therapy Current Condition Current Condition Evaluation Date 07/09/21 Treatment Diagnosis L TKA; BLE neuropathy; difficulty in walking Onset Date 07/09/21 M3 PT-IP Subjective Start: 07/09/21 14:02 Freq: NEEDED Status: Active Protocol: Document 07/11/21 09:29 KS (Rec: 07/11/21 12:58 KS [id number]) Subjective Physical Therapy Visit Type Type Treatment Note Visit Start Time 09:29 Visit Stop Time 09:56 Total Visit Minutes 27 Number of TRAILER SECTIONS ASSEMBLER Visits 3 Physical Therapy Visit Comments Patient Comments Pt agreeable to working w/ therapy. Patient Goals Pt plans to return home with family support. M4 PT-IP Mobility and Gait Start: 07/09/21 14:02 Freq: NEEDED Status: Active Protocol: Document 07/11/21 09:29 KS (Rec: 07/11/21 12:58 KS [id number]) PT-Bed Mobility Assessment Scooting Scooting to Edge of Bed Standby Assistance PT-Transfer Assessment Sit to and From Stand Sit to and from Stand Moderate Assistance,1 Person Assistance,Use of Upper Extremities Equipment Transfer Assistive Device Gait Belt,Front Wheeled Walker Orthotic/Prosthetic Devices or Brace: No Transfers Transfer Destination Chair Transfer Technique pt ambulated using FWW Transfer Ability Level of Assist Minimal Assistance,Moderate Assistance,1 Person Assistance ,Use of Upper Extremities Comments Mobility Comments Pt in chair upon arrival from therapy. Mod A and cues for sit<>stand w/ FWW, pt requiring momentum and use of BUE to stand. In standing, pt has forward flexed trunk needing frequent verbal and tactile cues to correct. She was able to perform ~[address] w/ FWW Min A but was quick to fatigue, becam esweaty and SOB and requested to sit. Min A and cues for slow descent and hand placement. Pt required ~4 min rest break and the sit<> stand Min/Mod A w/ FWW. She then ambulated ~15 ft w/ FWW and heavy weightbearing through BUE. Pt continued to have forward flexed posture requiring verbal cues to correct and reported increase in fatigue. She required Min A during ambulation due to weakness and fatigue and required assistance managing FWW. After returning to chair, pt completed 1x10 ankle pumps , LAQs and glute sets. Anticipated practicing stairs w/ pt however at this time pt too weak and unsafe to complete. Pt left in chair w/ all needs in reach. Gait Assessment Gait Gait Assistance Required: Minimum Assistance,1 Person Assist Distance (Feet) 15 Able to Maintain Weight Bearing Status Yes During Gait Assistive Devices Assistive Device Gait Belt,Front Wheeled Walker Orthotic/Prosthetic Devices or Brace: No Gait Deviations General Gait Pattern Antalgic,Decreased Stride Length,Decreased Feet Clearance,Flexed Trunk,Step-to Gait Factors Limiting Gait Function Factors Limiting Gait Function Decreased Activity Tolerance, Decreased Sensation,Decreased Strength,Difficulty Following Directions,Limited Range of Motion,Pain,Poor Balance,Poor Safety Awareness Comments Gait Comments Pt ambulated ~15 ft w/ FWW and Min A w/ max cues for upright posture and FWW management. Pt relied heavily on BUE and was very quick to fatigue, became sweaty and SOB. Decreased stride and foot clearance. Pt unable to tolerate further ambulation at this time due to low tolerance for activity and weakness. Stair Climbing Assessment Comments Stair Climbing Comments Unable to assess due to unsteady in standing, decreased strength during gait distance, and quick approach to fatigue. PT-Balance Assessment Sitting Balance and Reactions Static Sitting Balance Ability Normal Dynamic Sitting Balance Ability Good Standing Balance and Reactions Static Standing Balance Ability Fair Dynamic Standing Balance Ability Poor Device Used FWW M5 PT-IP Objective Assessments Start: 07/09/21 14:02 Freq: NEEDED Status: Active Protocol: Document 07/09/21 14:43 AW (Rec: 07/09/21 15:15 AW [id number]) Orientation Orientation/Cognition Level of Alertness Alert Orientation Name,Day of Week,Place, Situation Language Function Ability No Deficits Noted Safety Awareness Understands Safety Issues Memory Description No Deficits Noted Gross Range of Motion Lower Extremity ROM Assessment Left Impaired Strength Lower Extremity Strength Assessment Bilaterally Impaired Hip R 4/5; L 4-/5 Knee R 4+/5 Ankle B 4/5 Sensation Assessment Sensation Gross Sensation Right UE Impaired,Right LE Impaired,Left LE Impaired Light Touch Impaired Proprioception (Position) Impaired Comments Sensation Comments 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 She reports her PT will take her shoes off and she has no idea if she is not looking. Similarly, pt does not feel pressure of SCD's on her legs at this encounter. Sensation slightly more intact proximally. M6 PT-IP Treatment Start: 07/09/21 14:02 Freq: NEEDED Status: Active Protocol: Document 07/11/21 09:29 KS (Rec: 07/11/21 12:58 [place] [id number]) Physical Therapy Treatment Exercises Exercises Ankle Pumps,Gluteal Sets,Heel Slides,Seated Knee Flexion/ Extension Education Education Provided Weight Bearing Status,Post-Op Packet,Safety Other Treatments Other Treatment Performed Educated pt on PT plan of care , weightbearing status, safe use of FWW. M7 PT-IP Assessment and Plan Start: 07/09/21 14:02 Freq: NEEDED Status: Active Protocol: Document 07/11/21 09:29 KS (Rec: 07/11/21 12:58 [place] [id number]) PT Summary Assessment and Plan Potential Rehabilitation Potential Good Status of Condition at Evaluation Evolving Summary Impairments Pain,ROM,Strength,Balance,Bed Mobility,Transfers,Gait Progress Towards Goals Progressing Toward Goals,Slow Progress due to Pain,Slow Progress due to Activity Tolerance Assessment Summary Pt continues to require significant assist w/ transfers and is limited in mobility by low tolerance for activity, pain, and weakness. Mod A fot sit<>stand w/ FWW, pt with flexed posture and frequent cues to remain upright. Only able to tolerate ~[address] and 15 ft ambulation w/ FWW Min A and cues. She will need to complete 4 steps to enter home, but is not currently safe to complete due to weakness and limited mobility. Goals Bed Mobility Goal Independent Transfer Goal Standby Assistance,Front Wheeled Walker Gait Goal Contact Guard Assistance,Front Wheel Walker Gait Distance 75 Other Goals - up/down 4 steps with unilateral rail CGA Days to Meet Goals 5 Frequency of Treatment Frequency Of Treatment Twice a Day Treatment Plan Physical Therapy Treatment Plan Bed Mobility Training,Transfer Training,Gait Training, Therapeutic Exercise,Balance Retraining,Post Op Education, Discharge Planning,Hot or Cold Pack Other Recommendations and Next Treatment transfers, gait w/ FWW, ROM/ Focus Ther ex, 4 step stair mgt w/ HR& QC, continue to coordinate CGT with pt/DIL 12/30 am. Weight Bearing Status Weight Bearing Status Weight Bear as Tolerated Recommendations To Nursing Amount of Assist Needed 1 Person Assist Discharge Recommendations PT Discharge Recommendations Home with 02/02 Assist Available,Home Health,SNF Rehab,Home vs SNF Transportation Needs at Discharge Private Vehicle
--- NOTE | 2021-07-11 10:38 | CM.DPC ---
Addendum entered by Khadra Contreras R.N. 07/11/21 15:28: Due to patient not being able to clear stairs, she will stay another day. Asked assistant Bridget, to send referral to [facility], as back up, for [place], should she not be able to go home tomorrow. Met with patient in her room. Introduced self and role. She wants to go home, she feels comfortable, and that her [id number], Kaykay, worries too much. Asked her if she felt comfortable going home in her car, if she would need any type of ambulance, but would be added cost. She indicated, she should be able to make it, wants to go home tomorrow, and doesn't want skilled, because her was in one, and wasn't a good experience. Gave permission for this facility planner to call Kaykay, her daughter in law for any additional information. Called Kaykay back. She indicated, she feels so better that she can stay, so they will have everything they need by tomorrow. She stated that they have friends that are sheet metal worker, that are able to help. P: Plan is home tomorrow with [facility]. Khadra Contreras RN/Machine Heel Seat Laster Original Note: DCP Cont: Patient's daughter in-law. Jessica, pam. Stated, they are going to boot her out, and I don't think she is ready. Reminded her that patient is observation, and deemed medically ready by orthopedics. She stated, well, the roads are snowy, that's one problem, and she has 4 stairs to get into the home. Reminded her, this was elective surgery for her, and if she is medically ready, she needs to be discharged today. She asked about how she was doing with therapy. Gave Bia O.T. her phone number so P.T. can work with her, and will call her back. At this time, patient will be discharged. Having assistant Bridget, send DC Summary to [facility]. P: Patient is to be discharged today with [facility]. P.T. will work with her prior for stair training. Khadra Contreras RN/Machine Heel Seat Laster
[2021-07-11 12:00] VITALS: BP 150/57; PULSE 67; RESP 17; TEMP 36.4; O2SAT 99
--- NOTE | 2021-07-11 14:23 | PT.IPTN ---
Current Diagnoses Unilateral primary osteoarthritis, left knee (07/10/21) Surgery Performed Operation Date: 07/09/21 07:45 Actual Procedures p Total Knee Arthroplasty(Left) - Gwen Burns MD Physical Therapy Treatment Note M2 PT-IP Current Condition Start: 07/09/21 14:02 Freq: NEEDED Status: Active Protocol: Document 07/10/21 14:50 SP (Rec: 07/10/21 16:52 SP [id number]) Physical Therapy Current Condition Current Condition Evaluation Date 07/09/21 Treatment Diagnosis L TKA; BLE neuropathy; difficulty in walking Onset Date 07/09/21 M3 PT-IP Subjective Start: 07/09/21 14:02 Freq: NEEDED Status: Active Protocol: Document 07/11/21 13:59 KS (Rec: 07/11/21 14:51 KS [id number]) Subjective Physical Therapy Visit Type Type Treatment Note Visit Start Time 13:59 Visit Stop Time 14:23 Total Visit Minutes 24 Number of REVENUE STAMPER Visits 4 Physical Therapy Visit Comments Patient Comments Pt agreeable to working w/ therapy. Patient Goals Pt plans to return home with family support. Therapy Pain Assessment Pain When Pain Assessed During Mobility Pain Present Pain Present Pain Reported M4 PT-IP Mobility and Gait Start: 07/09/21 14:02 Freq: NEEDED Status: Active Protocol: Document 07/11/21 13:59 KS (Rec: 07/11/21 14:51 KS [id number]) PT-Bed Mobility Assessment Supine to Sit Supine to Sit Moderate Assistance,1 Person Assistance,Head of Bed Elevated,Bedrails Scooting Scooting to Edge of Bed Contact Guard Assistance PT-Transfer Assessment Sit to and From Stand Sit to and from Stand Moderate Assistance,1 Person Assistance,Use of Upper Extremities Equipment Transfer Assistive Device Gait Belt,Front Wheeled Walker Orthotic/Prosthetic Devices or Brace: No Transfers Transfer Destination Chair Transfer Technique pt ambulated using FWW Transfer Ability Level of Assist Moderate Assistance,1 Person Assistance,Use of Upper Extremities Comments Mobility Comments Pt in bed upon arrival from therapy. Mod A for sup<>sit, difficulty elevating LLE to move out of bed even w/ gait belt for self assist, requiring Mod A from REVENUE STAMPER. CGA for scooting EOB. Mod A and cues for sequencing for sit<> stand w/ FWW. Pt then ambulated ~20 ft to BSC w/ FWW and Min A for FWW use, she required frequent cues for upright posture and relies heavily on BUE and has very quick approach to fatigue resulting in SOB and sweating. She ambulated w/ decreased stride and foot clearance due to weakness. Pt transferred to [facility] Mod A and cues, unable to doff and don her own briefs. Mod A for sit<>stand and stand step pivot to chair. Pt then performed 2 x10 ankle pumps, glute sets, and heel slides. Unable to complete seated knee extension, poor motor control of LLE. Gait Assessment Gait Gait Assistance Required: Minimum Assistance,1 Person Assist Distance (Feet) 22 Able to Maintain Weight Bearing Status Yes During Gait Assistive Devices Assistive Device Gait Belt,Front Wheeled Walker Orthotic/Prosthetic Devices or Brace: No Gait Deviations General Gait Pattern Antalgic,Decreased Stride Length,Decreased Feet Clearance,Flexed Trunk,Step-to Gait Factors Limiting Gait Function Factors Limiting Gait Function Decreased Activity Tolerance, Decreased Sensation,Decreased Strength,Difficulty Following Directions,Limited Range of Motion,Pain,Poor Balance,Poor Safety Awareness Comments Gait Comments Please refer to mobility section for details. Stair Climbing Assessment Comments Stair Climbing Comments Unable to assess due to unsteady in standing, decreased strength during gait distance, and quick approach to fatigue. PT-Balance Assessment Sitting Balance and Reactions Static Sitting Balance Ability Normal Dynamic Sitting Balance Ability Good Standing Balance and Reactions Static Standing Balance Ability Fair Dynamic Standing Balance Ability Poor Device Used FWW M5 PT-IP Objective Assessments Start: 07/09/21 14:02 Freq: NEEDED Status: Active Protocol: Document 07/09/21 14:43 AW (Rec: 07/09/21 15:15 AW [id number]) Orientation Orientation/Cognition Level of Alertness Alert Orientation Name,Day of Week,Place, Situation Language Function Ability No Deficits Noted Safety Awareness Understands Safety Issues Memory Description No Deficits Noted Gross Range of Motion Lower Extremity ROM Assessment Left Impaired Strength Lower Extremity Strength Assessment Bilaterally Impaired Hip R 4/5; L 4-/5 Knee R 4+/5 Ankle B 4/5 Sensation Assessment Sensation Gross Sensation Right UE Impaired,Right LE Impaired,Left LE Impaired Light Touch Impaired Proprioception (Position) Impaired Comments Sensation Comments 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 She reports her PT will take her shoes off and she has no idea if she is not looking. Similarly, pt does not feel pressure of SCD's on her legs at this encounter. Sensation slightly more intact proximally. M6 PT-IP Treatment Start: 07/09/21 14:02 Freq: NEEDED Status: Active Protocol: Document 07/11/21 13:59 KS (Rec: 07/11/21 14:51 KS [id number]) Physical Therapy Treatment Exercises Exercises Ankle Pumps,Gluteal Sets,Heel Slides,Seated Knee Flexion/ Extension Education Education Provided Weight Bearing Status,Post-Op Packet,Safety Other Treatments Other Treatment Performed Educated pt on PT plan of care , weightbearing status, safe use of FWW. M7 PT-IP Assessment and Plan Start: 07/09/21 14:02 Freq: NEEDED Status: Active Protocol: Document 07/11/21 13:59 KS (Rec: 07/11/21 14:51 KS [id number]) PT Summary Assessment and Plan Potential Rehabilitation Potential Good Status of Condition at Evaluation Evolving Summary Impairments Pain,ROM,Strength,Balance,Bed Mobility,Transfers,Gait Progress Towards Goals Progressing Toward Goals,Slow Progress due to Pain,Slow Progress due to Activity Tolerance Assessment Summary Pt still requirining at least Mod A for sit<>stands and bed mobility, and Min A for ambulation w/ FWW> She is unable to tolerate further ambulation distance due to weakess and low tolerance for actvity. Able to complete exercises w/ cues. She has stairs to enter her home but is unsafe to complete today due to inability to progress gait distance and increased weakness. She will need to improve gait distance, bed mobility, transfers, and ascend/descend steps prior to being cleared from PT. Goals Bed Mobility Goal Independent Transfer Goal Standby Assistance,Front Wheeled Walker Gait Goal Contact Guard Assistance,Front Wheel Walker Gait Distance 75 Other Goals - up/down 4 steps with unilateral rail CGA Days to Meet Goals 5 Frequency of Treatment Frequency Of Treatment Twice a Day Treatment Plan Physical Therapy Treatment Plan Bed Mobility Training,Transfer Training,Gait Training, Therapeutic Exercise,Balance Retraining,Post Op Education, Discharge Planning,Hot or Cold Pack Other Recommendations and Next Treatment transfers, gait w/ FWW, ROM/ Focus Ther ex, 4 step stair mgt w/ HR& QC, continue to coordinate CGT with pt/DIL 12/30 am. Weight Bearing Status Weight Bearing Status Weight Bear as Tolerated Recommendations To Nursing Amount of Assist Needed 1 Person Assist Discharge Recommendations PT Discharge Recommendations Home with 02/02 Assist Available,Home Health,SNF Rehab,Home vs SNF Transportation Needs at Discharge Private Vehicle
--- NOTE | 2021-07-11 14:56 | PM.DS.1 ---
History of Present Illness History of Present Illness Date Patient Seen: 07/11/21 Time Patient Seen: 07:40 Narrative: Patient is complaining of moderate left knee pain this morning. She is training use only Tylenol and ibuprofen as she would not like to use narcotics. We discussed the benefits of trying Ultram as well as Vistaril as needed and she agrees. She denies any new numbness or tingling but has baseline peripheral neuropathy. Overall she is feeling well and would like to be discharged home today. Discharge Providers Provider Date of admission: 07/10/21 09:15 Discharge Date: 07/11/21 Primary care physician: Shalonda Driver MD Consults: 07/09/21 06:15 Consult to Anesthesiology Routine Comment: Consulting Provider: Anesthesiologist Reason for consultation: Regional block for post operative pain control 07/09/21 12:00 Consult to Discharge Planning Routine Comment: Consult to Physical Therapy Evaluate & Treat Comment: Physician Instructions: postop TKA protocol Consult to Respiratory Therapy Evaluate & Treat Comment: Physician Instructions: Evaluate and treat 07/09/21 12:20 Consult to Dietitian, Adult Routine Comment: Reason For Exam: mini admission score 07/10/21 11:46 Consult to Home Health Routine Comment: LTKA, GERD, diabetes Reason For Exam: Set up HH RN/PT/OT/STRINGED INSTRUMENT TUNER for d/c to home when stable Discharge provider: Brandie Canales PA-C Summary Hospital Course Discharge Diagnosis: Left knee OA Hospital Course: Date of procedure: 07/09/21 Time of procedure: 08:10 Procedure & Clinicians Procedure: left knee OA Same procedure as scheduled: Yes Indications: The patient has had progressively worsening left knee pain with radiographic changes consistent with arthritis. Non-operative management has failed and the patient has requested total knee replacement. The risks, benefits and alternatives to surgery were discussed with the patient prior to proceeding. Risks discussed included, but were not limited to, failure to relieve pain, stiffness, infection, nerve damage, deep venous thrombosis, pulmonary embolism, stroke, coma, heart attack, permanent paralysis and , as well as the potential need for eventual revision of the prosthetic. Surgeon: Gwen Burns Pelt Grader: Brandie Canales Anesthesia Type: General and Spinal Operative Notes Findings: Severe left knee osteoarthritis Closure Type: primary Specimen(s): none sent Prosthetic devices, grafts, tissues, transplants, or devices: Size 5 left femur, size 3 tibia, +10 poly, 7.5 by 35 mm patella round Applied: drain(s) Estimated Blood Loss (mL): 250 Blood products transfused: none Tourniquet time (min): 92 Status at Discharge Cognitive/behavioral status at discharge: oriented Functional status at discharge: uses cane/walker Overall status at discharge: patient is progressing back to baseline Exam Vital Signs (past 8 hours): - 07/11/21 08:00 Temperature 98.3 F Pulse Rate 79 Respiratory Rate 17 Blood Pressure 185/84 H Pulse Oximetry 93 Oxygen Delivery Method Room Air Oxygen Flow Rate 0 Narrative Exam Narrative: Pleasant 80-year-old female, resting comfortably in bed, no acute distress. Dressing is clean, dry, intact. Bilateral lower extremities: Motor functions are grossly intact, sensation is grossly intact to light touch, calves are soft and nontender to palpation. Objective Labs Result Diagrams: 07/10/21 05:23 PFSH Medical History Anxiety Aortic stenosis Asthma Breast cancer, left Chronic sinusitis Diabetes (2002) Diabetic neuropathy GERD (gastroesophageal reflux disease) Gout HLD (hyperlipidemia) HTN (hypertension) Osteoarthritis Retrosternal goiter Surgical History Hx of bilateral cataract extraction Hx of left mastectomy (01/28/19) Hx of thyroidectomy (2004) Hx of tonsillectomy Hx of vaginal hysterectomy Social History household members: none Smoking Status: Never smoker alcohol intake: never Discharge Assessment & Plan Assessment and Plan Assessment: Stable status post left TKA Plan of Treatment: -mobilize with PT. weight-bearing as tolerated with front wheel walker -add Ultram and Vistaril to pain regimen, continue current DVT prophylaxis -DC home today when cleared by PT Discharge Plan Discharge Plan Patient Disposition: Home Discharge orders & Medications Prescriptions: New acetaminophen 500 mg capsule 500 mg PO Q4H MDD max 3000mg per day PRN (Reason: fever or pain) Qty: 90 0RF aspirin 81 mg Tablet,Delayed Release (Dr/Ec) 81 mg PO BID 42 Days Qty: 84 0RF Rx Instructions: to prevent blood clots [id number] docusate sodium 100 mg Capsule 100 mg PO BID PRN (Reason: constipation from narcotic pain meds) Qty: 20 0RF ibuprofen 400 mg Tablet 400 mg PO Q4HR MDD Max 2400 mg per day Qty: 90 0RF tramadol 50 mg Tablet 50 mg PO QID PRN (Reason: Pain, Moderate (4-6)) Qty: 42 0RF Continued glyburide 2.5 mg Tablet 2.5 mg PO BID 0RF allopurinol 100 mg Tablet 100 mg PO BID 0RF lisinopril 10 mg Tablet 10 mg PO DAILY 0RF furosemide 20 mg Tablet 40 mg PO QAM 0RF levothyroxine 50 mcg Capsule 50 mcg PO DAILY 0RF Discontinued acetaminophen 650 mg Tablet Extended Release 650 mg PO TID PRN (Reason: Pain) 0RF Medication counseling provided by Pharmacist: Yes Follow up/Referrals: Gwen Burns MD [Physician] - (10-14 days for postoperative visit *Appt on July 25, 2021. @ 2:00pm in the [facility] [phone].) Shalonda Driver MD [Primary Care Provider] - Diet/Activity/Treatments Diet: Diet as Tolerated and Regular Other treatments: Medications: -Aspirin 81mg twice daily x6 weeks to prevent blood clots. -OTC Tylenol 500 mg 1 tablet every 4 hours as needed for pain/fever. Max 6 tablets per day. -Ibuprofen 400 mg 1 tablet every 4 hours as needed for pain/inflammation. Max 2,400 mg per day. -Tramadol 50 mg take 1-2 tablets every 4 hours as needed for moderate-severe pain (narcotic pain medication; max 8 tabs per day). -As needed medications: -Ducolax and /or MiraLax as needed for constipation from narcotic pain medications. -Pepcid AC as needed for stomach upset (usually from aspirin or ibuprofen). Dressing/Wound care: -Remove the Jose Angel wrap 48 hours after surgery. -Keep Aquacell dressing in place until postoperative follow-up office visit. -Okay to shower. Keep wound out of direct water stream. No soaking or submerging until all the scabs fall off (approximately 6 weeks). -Please call the office if dressing becomes wet, soiled, or saturated. Activities: -Weight-bearing as tolerated. Use front wheeled walker, and progress to cane when safe. -Continue with home exercises as directed by your physical therapist. -Elevate ?toes above the nose if you have significant swelling in your lower leg. (A wedge pillow is easiest.) -Ice your incision as needed for pain/inflammation/swelling. Protect your skin with a folded pillowcase. Follow-up: -Follow-up with your surgeon or PA in the office in 10-14 days after surgery. -Follow-up with your surgeon 6 weeks postoperatively. Call the office if you have chest pain, shortness of breath, significant swelling that will not resolve with elevating, fever over 101?, significantly worsening pain. [facility]: [phone] Skin/Wound/Dressing Care Report to your healthcare provider any signs of infection, such as:: chills, fever, night sweats, unusual drainage and unusual redness Visit Report/Discharge Packet Instructions: DI for Knee Replacement Stand Alone Forms: Surgery Discharge Discharge Data Primary Care Provider: Shalonda Driver Attending Provider: Gwen Burns
[2021-07-11 15:30] VITALS: BP 148/61; PULSE 67; RESP 16; TEMP 36.3; O2SAT 99
--- NOTE | 2021-07-11 15:53 | CM.DPNOTE ---
Faxed snf referral packet and received fax conf. Bridget Menezes CM Asst.
[2021-07-11 20:00] VITALS: BP 155/58; PULSE 71; RESP 18; TEMP 36.4; O2SAT 94
[2021-07-12] VITALS: BP 131/58; PULSE 68; RESP 18; TEMP 36.7; O2SAT 94
[2021-07-12] MEDS: IBUPROFEN 400 MG TABLET PO ×4 (00:31→12:21)
[2021-07-12 04:05] VITALS: BP 162/68; PULSE 72; RESP 18; TEMP 36.2; O2SAT 95
[2021-07-12] MEDS: LEVOTHYROXINE 50 MCG TABLET PO (06:03)
[2021-07-12 07:40] VITALS: BP 157/58; PULSE 70; RESP 18; TEMP 36.4; O2SAT 97
[2021-07-12] MEDS: lisinopriL 10 MG TABLET PO (08:37)
[2021-07-12] MEDS: FUROSEMIDE 40 MG TABLET PO (08:37)
[2021-07-12] MEDS: allopurinoL 100 MG TABLET PO (08:37)
[2021-07-12] MEDS: DOCUSATE 100 MG CAPSULE PO (08:37)
[2021-07-12] MEDS: ASPIRIN EC 81 MG TABLET PO (08:37)
[2021-07-12] MEDS: SODIUM CHLORIDE 0.9% FLUSH 10 ML IV (08:38)
[2021-07-12] MEDS: glyBURIDE 2.5 MG TABLET PO (08:38)
[2021-07-12] MEDS: ACETAMINOPHEN 325 MG TABLET 650 MG PO ×2 (08:38→14:03)
--- NOTE | 2021-07-12 10:05 | CM.DPC ---
Addendum entered by Khadra Contreras R.N. 07/12/21 12:59: Spoke to patient's [id number], Kaykay. She indicated, I thought she was not going home today, and now she tells me that she is. Let her know that patient is to be going home today. She wanted to stay another day, her orthopedist has medically cleared her for discharge. Kaykay indicated, they never let me know yesterday that she wasn't going home until 5:00pm. Reminded her that this community development planner and her had several conversations yesterday as to why she was medically ready yesterday. Let her know that this was a last minute decision for her to stay another day, yesterday. Her concern is getting her into the house. Let her know that ambulance can be called if needed, but she refused, is too expensive. She indicated, she wants to see if she can get volunteers firefighters to help. Patient is refusing correction, so there are no other options. They were to prepare for her to go home yesterday, and should have some equipment in order. Let her know that she is to be discharged home today, and she will arrange to have family pick her up. Addendum entered by Khadra Contreras R.N. 07/12/21 12:33: Met with patient in her room. Wanted to ensure that she is going home today. Patient indicated, I'm going to stay another day, because my knee is still weak. Nurse had indicated, patient is not safe to go home. Spoke to patient, brought in [facility], as well. Let her know that she is medically clear to discharge home today. Verified with her she does not want to go to a correction facility. Reminded her that she was discharged yesterday, and was able to stay another day. Reminded her that this is an elective outpatient procedure, not an inpatient one. She is going to call her family and have them pick her up. Let her know that [facility] has already been ordered for her. Updated nurse, Polly, that home is the plan, for she does not want to go to correction, and she was able to stay an extra day yesterday. Family was aware of discharge yesterday, and they were working on getting patient equipment then. Attempted to get in touch with [facility], left a message. Original Note: DCP Cont: Patient will discharge today, spoke to Dr. Burns. She will be getting [facility], nursing, P.T, and O.T. Left [facility] a message that patient is discharging, and faxed over DC Summary from yesterday, do not yet have current. Faxed over face to face and orders as well. P: Patient is discharging home with [facility]. Khadra Contreras RN/Immigration Services Officer
--- NOTE | 2021-07-12 11:32 | PC.NURSE ---
Day shift: Pt OOB with PT and attempted to use stairs. Per PT, she is not safe at this time. Pt states that her left knee and that left knee are very weak and it is not the knee pain that prevents her from going up the stairs it is the weakness. Rekha w/ Cm was informed. Per conversation w/ PT Pt likely not safe for d/c home and may need SNF. Pain remains well controlled per MAR and VS WNL. Dressing is CDI w/ scant shadow present. Has also denied any nausea today.
[2021-07-12 12:01] VITALS: BP 162/58; PULSE 76; RESP 18; TEMP 36.7; O2SAT 97
--- NOTE | 2021-07-12 13:34 | PT.IPTN ---
Current Diagnoses Unilateral primary osteoarthritis, left knee (07/10/21) Surgery Performed Operation Date: 07/09/21 07:45 Actual Procedures p Total Knee Arthroplasty(Left) - Gwen Burns MD Physical Therapy Treatment Note M2 PT-IP Current Condition Start: 07/09/21 14:02 Freq: NEEDED Status: Active Protocol: Document 07/10/21 14:50 SP (Rec: 07/10/21 16:52 SP [id number]) Physical Therapy Current Condition Current Condition Evaluation Date 07/09/21 Treatment Diagnosis L TKA; BLE neuropathy; difficulty in walking Onset Date 07/09/21 M3 PT-IP Subjective Start: 07/09/21 14:02 Freq: NEEDED Status: Active Protocol: Document 07/12/21 12:38 LJ (Rec: 07/12/21 13:34 LJ [id number]) Subjective Physical Therapy Visit Type Type Treatment Note Visit Start Time 10:38 Visit Stop Time 11:04 Total Visit Minutes 24 Number of OIL HEATER OPERATOR Visits 5 Physical Therapy Visit Comments Patient Comments Pt agreeable to working w/ therapy. States she feels better than yesterday. Patient Goals Pt plans to return home with family support. Therapy Pain Assessment Pain When Pain Assessed During Mobility Pain Present Pain Present Pain Reported M4 PT-IP Mobility and Gait Start: 07/09/21 14:02 Freq: NEEDED Status: Active Protocol: Document 07/12/21 12:38 LJ (Rec: 07/12/21 13:34 LJ [id number]) PT-Bed Mobility Assessment Supine to Sit Supine to Sit Minimal Assistance,1 Person Assistance,Head of Bed Elevated,Bedrails Scooting Scooting to Edge of Bed Contact Guard Assistance PT-Transfer Assessment Sit to and From Stand Sit to and from Stand Minimal Assistance,1 Person Assistance,Use of Upper Extremities Equipment Transfer Assistive Device Gait Belt,Front Wheeled Walker Orthotic/Prosthetic Devices or Brace: No Transfers Transfer Destination Chair,Wheelchair Transfer Technique pt ambulated using FWW Transfer Ability Level of Assist Minimal Assistance,1 Person Assistance,Use of Upper Extremities Comments Mobility Comments Pt in bed upon arrival. Required Elizabeth to sit up in bed using bedrails and ques. Requires assist lifting LLE over side of bed. Pt able to transfer Elizabeth and cues for proper posture rather than flexed trunk. Pt ambulated in room ~25' then requested to sit in chair to rest. She was able to sit down in chair CGA and cues to scoot back toward chair and reach back to assist lowering herself down. Pt then stood from chair CGA and ambulated to hallway to to be wheeled to stairs to attempt ascending and descending to simulate getting into house. Pt unable to trial stairs and was wheeled back to room where she performed [id number] to sit in chair again. INFORMATION DELIVERY ANALYST assisting with this therapist in case pt wanted to trial stairs. Gait Assessment Gait Gait Assistance Required: Minimum Assistance,1 Person Assist Distance (Feet) 30 Able to Maintain Weight Bearing Status Yes During Gait Assistive Devices Assistive Device Gait Belt,Front Wheeled Walker Orthotic/Prosthetic Devices or Brace: No Gait Deviations General Gait Pattern Antalgic,Decreased Stride Length,Decreased Feet Clearance,Flexed Trunk,Step-to Gait Factors Limiting Gait Function Factors Limiting Gait Function Decreased Activity Tolerance, Decreased Sensation,Decreased Strength,Difficulty Following Directions,Limited Range of Motion,Pain,Poor Balance,Poor Safety Awareness Comments Gait Comments Pt ambulated ~30 feet in room with cues for upright posture and lifting feet. Heavy reliance on UEs suggesting LE weakness. Pt became fatigued to point of requesting to rest in chair after less than 5 minutes of ambulation. Pt sat in chair while this therapist retreaved a to take pt to stairs. Pt ambulated to in hallway and was wheeled to stairs by INFORMATION DELIVERY ANALYST as therapist transported FWW. When arriving at the stairs pt looked at the stairs and stated that she wouldn't be able to get up and down them. Therapist in agreement. Pt was wheeled back to room and she returned to sitting in the chair with all needs within reach. Stair Climbing Assessment Comments Stair Climbing Comments Unable to assess due to pt refusal and also therapist recommending to not attempt stairs at this point due to decreased strength, activity tolerance, and unsafe situation. M5 PT-IP Objective Assessments Start: 07/09/21 14:02 Freq: NEEDED Status: Active Protocol: Document 07/09/21 14:43 AW (Rec: 07/09/21 15:15 AW [id number]) Orientation Orientation/Cognition Level of Alertness Alert Orientation Name,Day of Week,Place, Situation Language Function Ability No Deficits Noted Safety Awareness Understands Safety Issues Memory Description No Deficits Noted Gross Range of Motion Lower Extremity ROM Assessment Left Impaired Strength Lower Extremity Strength Assessment Bilaterally Impaired Hip R 4/5; L 4-/5 Knee R 4+/5 Ankle B 4/5 Sensation Assessment Sensation Gross Sensation Right UE Impaired,Right LE Impaired,Left LE Impaired Light Touch Impaired Proprioception (Position) Impaired Comments Sensation Comments 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 She reports her PT will take her shoes off and she has no idea if she is not looking. Similarly, pt does not feel pressure of SCD's on her legs at this encounter. Sensation slightly more intact proximally. M6 PT-IP Treatment Start: 07/09/21 14:02 Freq: NEEDED Status: Active Protocol: Document 07/12/21 12:38 (Rec: 07/12/21 13:34 [id number]) Physical Therapy Treatment Education Education Provided Weight Bearing Status,Post-Op Packet,Safety M7 PT-IP Assessment and Plan Start: 07/09/21 14:02 Freq: NEEDED Status: Active Protocol: Document 07/12/21 12:38 (Rec: 07/12/21 13:34 [id number]) PT Summary Assessment and Plan Potential Rehabilitation Potential Good Status of Condition at Evaluation Evolving Summary Impairments Pain,ROM,Strength,Balance,Bed Mobility,Transfers,Gait Progress Towards Goals Progressing Toward Goals,Slow Progress due to Pain,Slow Progress due to Activity Tolerance Assessment Summary Pt remains very limited in ability to ambulate more than a few minutes and distance. She is unsafe to do stairs due to weakness, activity tolerance, and fatigue. Prior to discharge she will need to progress gait and ascend and descend stairs, and progress with mobility independence. She is unsafe to discharge home and will need time and PT to improve stength, mobility independence, and ambulation distance. This therapist recommends SNF to improve deficity to safely return home . Goals Bed Mobility Goal Independent Transfer Goal Standby Assistance,Front Wheeled Walker Gait Goal Contact Guard Assistance,Front Wheel Walker Gait Distance 75 Other Goals - up/down 4 steps with unilateral rail CGA Days to Meet Goals 5 Frequency of Treatment Frequency Of Treatment Twice a Day Treatment Plan Physical Therapy Treatment Plan Bed Mobility Training,Transfer Training,Gait Training, Therapeutic Exercise,Balance Retraining,Post Op Education, Discharge Planning,Hot or Cold Pack Other Recommendations and Next Treatment transfers, gait w/ FWW, ROM/ Focus Ther ex, 4 step stair mgt w/ HR& QC, continue to coordinate CGT with pt/DIL 12/30 am. Weight Bearing Status Weight Bearing Status Weight Bear as Tolerated Recommendations To Nursing Amount of Assist Needed 1 Person Assist Discharge Recommendations PT Discharge Recommendations Home with 02/02 Assist Available,Home Health,SNF Rehab,Home vs SNF
--- NOTE | 2021-07-12 14:05 | PC.NURSE ---
Day shift: Pt left unit at approx 1400 today. Paperwork signed and all question answered. Went over d/c with Pt and Pt's daughter in detail. Encourage dPt to drink plenty of water. Get up and move, perform foot waves and to ask for help as needed. Pt has all personal belongings. MD scripts sent to [place] but they are closed today. Pt to call MD on Thursday and have them sent electronic to [facility]. Dressing remains CDI. Taken to daughters car in by BOX FEEDER. Pt pain has been well controlled per SEP and encouraged to manage pain per d/c instruvctions. Also encouraged to use I.S. when at home.
== END 2021-07-12 14:09 | disposition home or self-care (01) ==
LOC: OR 09:29 → AC 09:29
PROVIDERS: Admitting Provider Orthopaedic Surgery; PCP Family Medicine; Referring Provider Orthopaedic Surgery; Visit Provider Orthopaedic Surgery
PROC: 0SRD0JZ Replacement of Left Knee Joint with Synthetic Substitute, Open Approach (ICD-10-PCS; CPT 27447; principal; 2021-07-09 07:45)
DX: M17.12 Unilateral primary osteoarthritis, left knee (principal); J45.909 Unspecified asthma, uncomplicated; E11.40 Type 2 diabetes mellitus with diabetic neuropathy, unspecified; K21.9 Gastro-esophageal reflux disease without esophagitis; I10 Essential (primary) hypertension; Z79.84 Long term (current) use of oral hypoglycemic drugs
CPT/HCPCS: 27447; 36415; 36591; 73560; 82962; 85014; 85018; 97116; 97162; 97530; C1776; G0378; C9290; J0171; J0690; J1100; J2250; J2405; J2704; J3010